=== PATIENT | female | born 1995 | race Caucasian/White ===

== ENCOUNTER 2021-01-17 12:41 | Outpatient (CLI) | payer BC | END 2021-01-17 12:42 | disposition home or self-care (01) | LOC: EEG 12:41 | PROVIDERS: ATTEND Psychiatry & Neurology Neurology | DX: R56.9 Unspecified convulsions (principal) | CPT/HCPCS: 95816 ==

== ENCOUNTER 2022-05-12 08:24 | Outpatient (CLI) | payer BC | END 2022-05-12 08:25 | disposition home or self-care (01) | LOC: BICULT 08:24 | PROVIDERS: ATTEND Obstetrics & Gynecology | DX: N63.20 Unspecified lump in the left breast, unspecified quadrant (principal) ==